=== PATIENT | male | born 1955 | race Caucasian/White ===

== ENCOUNTER 2018-07-06 08:39 | Observation (INO) | payer BC ==
[2018-07-06] MEDS ORDERED: IBUPROFEN 600 MG TABLET PO ONE (09:25)
[2018-07-06 09:31] LABS: HEMATOCRIT 40.9 % (42.0-52.0); HEMOGLOBIN 14.7 gm/dl (14.0-18.0); MEAN CELL VOLUME 88.9 fl (81-97); MEAN CORPUSCULAR HGB CONC 35.9 g/dl (32-36); MEAN PLATELET VOLUME 9.8 fl (7.4-10.4); PLATELET COUNT 279 K/uL (130-400); RED CELL DISTRIBUTION WIDTH 12.9 % (11.5-14.5)
[2018-07-06 09:40] LABS: BLOOD UREA NITROGEN 22 mg/dL (8-23); CREATININE 1.1 mg/dL (0.7-1.2); EST GLOMERULAR FILTRATION RATE > 60 mL/min
[2018-07-06 09:42] LABS: GLUCOSE,RANDOM 119 mg/dL (74-109)
--- NOTE | 2018-07-06 09:55 | Emergency Department Record ---
History of Present Illness - General Chief complaint: Pain Stated complaint: RIB PAIN/ATTACKED MY GOAT Time Seen by Provider: 07/06/18 09:15 Source: Patient, RN notes reviewed Mode of Arrival: Ambulatory - History of Present Illness Initial comments: patient rammed by a sheep yesterday with right rib pain and swollen right ankle. No other injuries Onset/Timin -: Days(s) Location: Right Severity scale (1-10): 5 Quality: Aching, Sharp Improves with: Rest Worsens with: Exertion, Palpation - Related Data Home Medications Medication Instructions Recorded Confirmed Last Taken Amlodipine Besylate [Norvasc] 10 mg PO DAILY 07/06/18 07/06/18 1 Day Ago ~07/05/18 Allergies Allergy/AdvReac Type Severity Reaction Status Date / Time No Known Drug Allergies Allergy Verified 07/06/18 08:48 Travel Screening - Travel/Exposure Within Last 30 Days Have you traveled within the last 30 days?: No - Travel/Exposure Within Last Year Have you traveled outside the [place] in the last year?: No - Additonal Travel Details Have you been exposed to anyone with a communicable illness?: No - Travel Symptoms Symptom Screening: None Review of Systems Reviewed: No additional complaints except as noted below Constitutional: Reports: As per HPI. Denies: Chills, Fever, Malaise, Night sweats, Weakness, Weight change Eyes: Reports: As per HPI. Denies: Eye discharge, Eye pain, Photophobia, Vision change ENT: Reports: As per HPI. Denies: Congestion, Dental pain, Ear pain, Epistaxis , Hearing loss, Throat pain Respiratory: Reports: As per HPI. Denies: Cough, Dyspnea, Hemoptysis, Stridor, Wheezes Cardiovascular: Reports: As per HPI, Other (right chest wall pain). Denies: Arrhythmia, Chest pain, Dyspnea on exertion, Edema, Murmurs, Orthopnea, Palpitations, Paroxysmal nocturnal dyspnea, Rheumatic Fever, Syncope Endocrine: Reports: As per HPI. Denies: Fatigue, Heat or cold intolerance, Polydipsia, Polyuria Gastrointestinal: Reports: As per HPI. Denies: Abdominal pain, Constipation, Diarrhea, Hematemesis, Hematochezia, Melena, Nausea, Vomiting Genitourinary: Reports: As per HPI. Denies: Dysuria, Frequency, Hematuria, Incontinence, Retention, Testicular pain, Testicular mass, Urgency Musculoskeletal: Reports: As per HPI. Denies: Arthralgia, Back pain, Gout, Joint swelling, Myalgia, Neck pain Skin: Reports: As per HPI. Denies: Bruising, Change in color, Change in hair/ nails, Lesions, Pruritus, Rash Neurological: Reports: As per HPI. Denies: Abnormal gait, Confusion, Headache, Numbness, Paresthesias, Seizure, Tingling, Tremors, Vertigo, Weakness Psychiatric: Reports: As per HPI. Denies: Anxiety, Auditory hallucinations, Depression, Homicidal thoughts, Suicidal thoughts, Visual hallucinations Hematological/Lymphatic: Reports: As per HPI. Denies: Anemia, Blood Clots, Easy bleeding, Easy bruising, Swollen glands Past Medical History - SOCIAL HISTORY Smoking Status: Current every day smoker Alcohol Use: None Alcohol Use Comment: for 1 year Drug Use: None - RESPIRATORY Hx Respiratory Disorders: No - CARDIOVASCULAR Hx Cardio Disorders: Yes Hx Hypertension: Yes - NEURO Hx Neuro Disorders: No - GI Hx GI Disorders: No - Hx Genitourinary Disorders: No - ENDOCRINE Hx Endocrine Disorders: No Hx Diabetes: No Hx Thyroid Disease: No - MUSCULOSKELETAL Hx Musculoskeletal Disorders: Yes Hx Arthritis: Yes - PSYCH Hx Psych Problems: No - HEMATOLOGY/ONCOLOGY Hx Hematology/Oncology Disorders: Yes 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 negative: External canal tenderness Nasal Exam: Normal inspection. negative: Discharge, Sinus tenderness Mouth exam: Normal external inspection, Tongue normal Teeth exam: Normal inspection. negative: Dental caries Throat exam: Normal inspection. negative: Tonsillar erythema, Tonsillar exudate - Neck Neck exam: Normal inspection, Full ROM. negative: Tenderness - Respiratory Respiratory exam: Normal lung sounds bilaterally, Other (right chest wall pain) . negative: Respiratory distress - Cardiovascular Cardiovascular Exam: Regular rate, Normal rhythm, Normal heart sounds - GI/Abdominal GI/Abdominal exam: Soft, Normal bowel sounds. negative: Tenderness - Rectal Rectal exam: Deferred - exam: Deferred - Extremities Extremities exam: Joint swelling, Normal capillary refill, Tenderness (right ankle pain) - Back Back exam: Reports: Normal inspection, Full ROM. Denies: Muscle spasm, Rash noted, Tenderness - Neurological Neurological exam: Alert, Normal gait, Oriented X3, Reflexes normal - Psychiatric Psychiatric exam: Normal affect, Normal mood - Skin Skin exam: Dry, Intact, Normal color, Warm Course Vital Signs 07/06/18 08:49 Temperature 98.4 F Pulse Rate 81 Respiratory 20 Rate Blood Pressure 148/97 Pulse Ox 98 Discussed case with Yuridia Mendez - Reevaluation(s) Reevaluation #1: discussed case with Dr Fox 07/06/18 12:32 Medical Decision Making - Lab Data Result diagrams: 07/06/18 09:00 07/06/18 09:00 Lab Results 07/06/18 07/06/18 07/06/18 Range/Units 09:00 09:00 09:00 WBC 14.0 H (4.2-12.2) K/uL RBC 4.60 (4.40-5.70) M/uL Hgb 14.7 (14.0-18.0) gm/dl Hct 40.9 L (42.0-52.0) % MCV 88.9 (81-97) fl MCH 32.0 (27-33) pg MCHC 35.9 (32-36) g/dl RDW 12.9 (11.5-14.5) % Plt Count 279 (130-400) K/uL MPV 9.8 (7.4-10.4) fl Neutrophils % 88.0 H (47-80) % Eosinophils % Not Reportable Basophils % Not Reportable Lymphocytes 6.0 L (16-45) % Monocytes 6.0 (0-9) % APTT 30.0 (24.5-39.1) SECONDS Sodium 140 (136-145) mmol/L Potassium 4.0 (3.4-4.5) mmol/L Chloride 101 (98-107) mmol/L Carbon Dioxide 22.0 (22-29) mmol/L Anion Gap 17.0 H (7-16) BUN 22 (8-23) mg/dL Creatinine 1.1 (0.7-1.2) mg/dL Estimated GFR > 60 mL/min Random Glucose 119 H (74-109) mg/dL Calcium 10.0 (8.8-10.2) mg/dL Ethyl Alcohol 0.010 (0-0.010) g/dL Disposition Clinical Impression: Multiple rib fractures Qualifiers: Encounter type: initial encounter Fracture type: closed Laterality: right Qualified Code(s): S22.41XA - Multiple fractures of ribs, right side, initial encounter for closed fracture Pneumothorax Qualifiers: Pneumothorax type: traumatic Encounter type: initial encounter Qualified Code(s ): S27.0XXA - Traumatic pneumothorax, initial encounter Fibula fracture Qualifiers: Encounter type: initial encounter Fibula location: distal Fracture type: closed Fracture morphology: unspecified fracture morphology Laterality: right Qualified Code(s): S82.831A - Other fracture of upper and lower end of right fibula, initial encounter for closed fracture Decision to Admit: Admit from ER Forms: Patient Portal Access Time of Disposition: 12:57 Quality - Quality Measures Quality Measures: N/A - Blood Pressure Screening Does Patient Have Any of the Following: No, Active Dx of HTN Blood Pressure Classification: Hypertensive Reading Systolic Measurement: 148 Diastolic Measurement: 97 Screening for High Blood Pressure: Patient Exclusion, Hx of HTN [G9744]
[2018-07-06] MEDS ORDERED: HYDROMORPHONE HCL 2 MG/ML VIAL IVP ONE (12:07)
[2018-07-06 12:20] LABS: URINE APPEARANCE CLEAR; URINE BILIRUBIN NEGATIVE (NEGATIVE); URINE BLOOD NEGATIVE (NEGATIVE); URINE COLOR YELLOW; URINE GLUCOSE (UA) NEGATIVE (NEGATIVE); URINE KETONE NEGATIVE (NEGATIVE); URINE LEUKOCYTE ESTERASE NEGATIVE (NEGATIVE); URINE NITRITE NEGATIVE (NEGATIVE); URINE PROTEIN NEGATIVE (NEGATIVE); URINE UROBILINOGEN 0.2 E.U./dL (0.20 - 1.00)
[2018-07-06] MEDS ORDERED: IPRATROPIUM/ALBUTEROL (0.5MG/3MG) NEB INH PRN (14:58)
[2018-07-06] MEDS: HYDROMORPHONE HCL 2 MG/ML VIAL IVP PRN ×2 (15:36→22:39)
[2018-07-06] MEDS ORDERED: NICOTINE 21 MG/24 HOUR PATCH TD SCH (15:45)
[2018-07-06] MEDS ORDERED: ACETAMINOPHEN 500 MG TABLET PO PRN (17:04)
[2018-07-06] MEDS ORDERED: NAPROXEN 250 MG TABLET PO PRN (17:07)
[2018-07-06] MEDS: HYDROCODONE/APAP 5/325MG TABLET PO PRN ×2 (18:11→22:41)
[2018-07-07] MEDS: HYDROCODONE/APAP 5/325MG TABLET PO PRN (03:25)
[2018-07-07] MEDS: HYDROMORPHONE HCL 2 MG/ML VIAL IVP PRN (03:51)
--- NOTE | 2018-07-07 07:36 | RADIOLOGY REPORT ---
EXAM: RIGHT ANKLE, THREE VIEWS HISTORY: PAIN AND SWELLING POST FALL. TECHNIQUE: Three views of the right ankle were obtained. Comparison: None. FINDINGS: There is borderline osteopenia. There is an oblique fracture of the distal fibula with disruption of the medial cortex at the level of the corner of the ankle mortise. No significant displacement. No other fracture nor dislocation. The ankle mortise joint appears symmetric. The distal tibiofibular joint does not appear widened. There is moderate lateral soft tissue swelling. IMPRESSION: NONDISPLACED OBLIQUE/SPIRAL FRACTURE OF THE DISTAL FIBULA WITH ASSOCIATED SOFT TISSUE SWELLING. THE ANKLE MORTISE JOINT IS SYMMETRIC. JOB NUMBER: [id number] [facility]
--- NOTE | 2018-07-07 07:48 | RADIOLOGY REPORT ---
EXAM: RIGHT RIBS WITH PA CHEST HISTORY: RIGHT RIB PAIN ONE DAY POST TRAUMA. TECHNIQUE: AP and oblique views of the right ribs are obtained as well as an upright PA view of the chest. Comparison: None. Encounter: Initial. FINDINGS: There is normal bone mineralization. On AP views there is questionable minimally displaced fracture of the anterolateral right sixth and seventh ribs. These are not well visualized on oblique views. On oblique views there is question of nondisplaced fracture of the anterolateral right eighth and ninth ribs. No other definite fracture. No lytic or blastic bone lesion. There are degenerative changes scattered throughout the visualized spine and right shoulder girdle. The heart is not enlarged and the pulmonary vasculature is nondilated. The thoracic aorta is tortuous and atherosclerotic. There is a possible small calcified granuloma in the lateral right lung apex. Minor linear scarring versus atelectasis in the lateral left lung base. There is suggestion of mild pleural stripe thickening in the lateral lower right hemithorax base which may relate to above described fractures. No costophrenic angle blunting. There is a questionable tiny apical pneumothorax. Surgical clips are noted in the left lung base. IMPRESSION: 1. MINIMALLY DISPLACED FRACTURES OF THE ANTEROLATERAL RIGHT SIXTH AND SEVENTH RIBS. NONDISPLACED FRACTURES OF THE MID TO DISTAL RIGHT EIGHTH AND NINTH RIBS ALSO QUESTIONED. THERE IS ASSOCIATED MILD LATERAL PLEURAL STRIPED THICKENING. 2. TINY RIGHT APICAL PNEUMOTHORAX QUESTIONED. 3. MINOR LINEAR SCARRING VERSUS ATELECTASIS IN THE LEFT LUNG BASE. CALCIFIED GRANULOMA QUESTIONED IN THE RIGHT LUNG APEX. JOB NUMBER: [id number] [facility]
--- NOTE | 2018-07-07 08:11 | CT SCAN REPORT ---
EXAM: CT OF THE CHEST WITHOUT CONTRAST HISTORY: RIGHT RIB PAIN POST FALL LAST NIGHT. RIB FRACTURES AND TINY PNEUMOTHORAX SUGGESTED ON SAME DAY RADIOGRAPHIC EXAMINATION. TECHNIQUE: Routine noncontrast CT examination of the chest was obtained. Comparison: Same day right rib series with PA chest. FINDINGS: The heart is nonenlarged. There is moderate atherosclerotic calcification of the coronary arteries. The thoracic aorta is diffusely atherosclerotic and tortuous. The ascending thoracic aorta is mildly ectatic measuring 3.8 cm in diameter. No mediastinal nor hilar mass/lymphadenopathy is seen. No mediastinal hematoma. There is a calcified right hilar lymph node consistent with healed granulomatous disease. The central airways are clear. Mild paraseptal emphysema is noted within the upper lungs. There is associated biapical lung scarring. Mild dependent atelectasis in each lung base. There are a couple tiny 1-2 mm noncalcified nodules in the anterolateral right upper lobe and a similar tiny subpleural nodule in the left upper lobe. A small area of ground glass opacity is noted in the left upper lobe laterally as seen on series 302 image 41. There is a small pleural based nodule in the inferior aspect of the right upper lobe contiguous with the minor fissure measuring 3.5 mm. This is likely the result of scarring though a neoplastic nodule is not entirely excluded. There is a tiny pneumothorax best seen in the apex with the air filled pleural space measuring 10 mm in maximum thickness. There are again noted minimally displaced fractures of the anterolateral right sixth and seventh ribs and nondisplaced fractures of the anterolateral right eighth and ninth ribs. There is a possible nondisplaced fractures of the anterolateral right fifth rib. There is mild associated pleural stripe thickening in these regions. The adrenal glands are not enlarged. No lytic or blastic bone lesion. IMPRESSION: 1. MULTIPLE RIGHT RIB FRACTURES REDEMONSTRATED ASSOCIATED WITH A VERY SMALL PNEUMOTHORAX. 2. PATCHY OPACITIES IN THE LUNG BASES CONSISTENT WITH ATELECTASIS OR LESS LIKELY INFILTRATE. TRACE DEPENDENT RIGHT PLEURAL FLUID WOULD BE DIFFICULT TO EXCLUDE. 3. SEVERAL NONCALCIFIED LUNG NODULES IDENTIFIED MEASURING 4 MM OR LESS. IF THERE IS A HISTORY OF SMOKING OR HISTORY OF MALIGNANCY, FOLLOW-UP CT CHEST EXAMINATION IN TWELVE MONTHS IS RECOMMENDED. OTHERWISE, NO FURTHER EVALUATION IS NECESSARY. 4. BILATERAL CORONARY ARTERY CALCIFICATIONS. MILD ECTASIA OF THE ASCENDING THORACIC AORTA. JOB NUMBER: [id number] [facility]
--- NOTE | 2018-07-07 09:44 | History & Physical ---
History of Present Illness - Date of Service Date of Service for History & Physical: 07/07/18 - History of Present Illness Admitting Diagnosis: rib fractures right multiple. ankle fracture. right pneumothorax History of Present Illness: Joseph Hernández is a 63 y.o. M who presented to the [facility] ED on 07/06/18 after being rammed into by a 350lb sheep which resulted in right rib pain and a swollen right ankle. Upon further evaluation in the ED, pt was found to have multiple broken ribs, a small right pneumothorax and a broken right ankle. 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 Elizabeth Hanks every 6 months, HTN and current tobacco use. Was a heavy drinker but quit over 1 year ago. PCP: Dr. Mar ED Course: VS: BP 148/97, HR 81, RR 20, SPO2 98% on RA, T 98.[address]: Small Pneumothorax, atelectasis vs. infiltrates, non-calcified lung nodules CXR: 4 right sided rib fractures (minimally displaced 6th and 7th rib, non- displaced 8th and 9th) Right ankle x-ray: non displaced oblique/spiral fx of distal fibula Nerve Block for Rib Fractures given by Anesthesia 07/07/18: Today, pt is resting in bed, with daughter at bedside. A&Ox4. Reports that he is still quite painful. Was taking Naproxen, [place] 5/325mg and Dilaudid IV throughout the night. Denies having any ROJELIO. Has been doing Incentive Spirometer routinely. Reports that his would like him to see Dr. Us ( orthopedist) and has made an appointment already for him for next Wednesday however he would like to continue with Ortho consult prior to discharge. Is concerned about how he will get around with a broken ankle. Waiting for consult with Dr. Fox (orthopedist) for recommendations prior to discharge. Travel Screening - Travel/Exposure Within Last 30 Days Have you traveled within the last 30 days?: No - Travel/Exposure Within Last Year Have you traveled outside the [place] in the last year?: No - Additonal Travel Details Have you been exposed to anyone with a communicable illness?: No - Travel Symptoms Symptom Screening: None Review of Systems Constitutional: Reports: As per HPI. Denies: Chills, Fever, Malaise, Night sweats, Weakness, Weight change Eyes: Reports: As per HPI ENT: Reports: As per HPI, Other (reports poor condition of teeth d/t radiation) Respiratory: Reports: As per HPI. Denies: Cough, Dyspnea, Hemoptysis, Stridor, Wheezes Cardiovascular: Reports: As per HPI, Other (right chest wall pain). Denies: Arrhythmia, Chest pain, Dyspnea on exertion, Edema, Murmurs, Orthopnea, Palpitations, Paroxysmal nocturnal dyspnea, Rheumatic Fever, Syncope Endocrine: Reports: As per HPI Gastrointestinal: Reports: As per HPI, Constipation. Denies: Nausea Genitourinary: Reports: As per HPI. Denies: Dysuria, Frequency, Hematuria, Incontinence, Retention, Testicular pain, Testicular mass, Urgency Musculoskeletal: Reports: As per HPI, Other (right ankle pain). Denies: Arthralgia, Back pain, Gout, Joint swelling, Myalgia, Neck pain Skin: Reports: As per HPI. Denies: Bruising, Change in color, Change in hair/ nails, Lesions, Pruritus, Rash Neurological: Reports: As per HPI. Denies: Abnormal gait, Confusion, Headache, Numbness, Paresthesias, Seizure, Tingling, Tremors, Vertigo, Weakness Psychiatric: Reports: As per HPI. Denies: Anxiety, Auditory hallucinations, Depression, Homicidal thoughts, Suicidal thoughts, Visual hallucinations Hematological/Lymphatic: Reports: As per HPI. Denies: Anemia, Blood Clots, Easy bleeding, Easy bruising, Swollen glands Past Medical History - SOCIAL HISTORY Smoking Status: Current every day smoker Alcohol Use: None Drug Use: None - RESPIRATORY Hx Respiratory Disorders: No - CARDIOVASCULAR Hx Cardio Disorders: Yes Hx Hypertension: Yes - NEURO Hx Neuro Disorders: No - GI Hx GI Disorders: No - Hx Genitourinary Disorders: No - ENDOCRINE Hx Endocrine Disorders: No Hx Diabetes: No Hx Thyroid Disease: No - MUSCULOSKELETAL Hx Musculoskeletal Disorders: Yes Hx Arthritis: Yes - PSYCH Hx Psych Problems: No - HEMATOLOGY/ONCOLOGY Hx Hematology/Oncology Disorders: Yes 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) Hx Chemotherapy: Yes (2013) Hx Radiation Therapy: Yes (2013) Family Medical History Any Significant Family History?: Yes Hx Diabetes: Mother Hx Kidney Disease: Father H&P Meds/Allergies - Allergies Allergies: Allergies Allergy/AdvReac Type Severity Reaction Status Date / Time No Known Drug Allergies Allergy Verified 07/06/18 08:48 - Home Medications Home Medications Medication Instructions Recorded Confirmed Last Taken Amlodipine Besylate [Norvasc] 10 mg PO DAILY 07/06/18 07/06/18 1 Day Ago ~07/05/18 Previous Rx's Medication Instructions Recorded Hydrocodone/APAP 7.5/325Mg [[place] 1 each PO TID PRN #15 tab 07/07/18 7.5MG/325Mg] Naproxen [Naprosyn] 500 mg PO Q12H PRN tablet 07/07/18 Sennosides/Docusate Sodium [Senna 1 each PO DAILY capsule 07/07/18 Plus] - Active Medications Active Medications: Current Medications Acetaminophen (Tylenol 500mg Tab) 500 mg PO Q6H PRN PRN Reason: PAIN - MILD (1-4) Hydrocodone Bitart/Acetaminophen ([place] 5mg/325mg) 1 each PO Q4H PRN PRN Reason: PAIN - MILD TO MODERATE (1-7) Last Admin: 07/07/18 03:25 Dose: 1 each Albuterol/Ipratropium (Duoneb) 3 ml INH RESP.Q4H PRN PRN Reason: WHEEZING Last Admin: 07/07/18 03:33 Dose: 3 ml Amlodipine Besylate (Norvasc) 10 mg PO DAILY PETE Enoxaparin Sodium (Lovenox) 40 mg SC DAILY PETE Hydromorphone HCl (Dilaudid) 0.5 mg IVP Q4H PRN PRN Reason: PAIN - SEVERE (8-10) Last Admin: 07/07/18 03:51 Dose: 0.5 mg Naproxen (Naprosyn) 500 mg PO Q12H PRN PRN Reason: PAIN - MILD (1-4) Last Admin: 07/06/18 22:41 Dose: 500 mg Nicotine (Nicotine 21mg) 1 patch TD Q24H PETE Last Admin: 07/06/18 15:44 Dose: 1 patch Physical Exam - Vital Signs Vital Signs: Vital Signs - Last 24 Hrs Temp Pulse Pulse Resp BP BP Pulse Ox 07/07/18 09:31 97.6 F 76 12 134/69 96 07/07/18 03:44 78 18 136/75 93 L 07/07/18 03:33 82 16 98 07/07/18 00:00 83 18 122/67 93 L 02/06/19 20:00 98.3 F 84 18 130/76 94 L 07/06/18 15:40 65 20 98 07/06/18 15:02 97.8 F 64 16 102/58 99 07/06/18 13:23 78 12 125/77 98 07/06/18 11:56 75 14 141/88 96 - General General Appearance: Alert, Oriented x3, Cooperative, No acute distress Limitations: No limitations - Head Head exam: Normal inspection - Eye Eye exam: Normal appearance, PERRL Pupils: Normal accommodation - ENT ENT exam: Normal exam, Mucous membranes moist, Normal external ear exam Ear exam: Normal external inspection. negative: External canal tenderness Nasal Exam: Normal inspection. negative: Discharge, Sinus tenderness Mouth exam: Normal external inspection, Tongue normal Teeth exam: Dental caries Throat exam: negative: Tonsillar erythema, Tonsillar exudate - Neck Neck exam: Normal inspection (scarring and discoloration d/t radiation), Full ROM. negative: Tenderness - Respiratory Respiratory exam: Chest wall tenderness, Wheezes. negative: Accessory muscle use, Respiratory distress - Cardiovascular Cardiovascular Exam: Regular rate, Normal rhythm, Normal heart sounds - GI/Abdominal GI/Abdominal exam: Soft, Normal bowel sounds. negative: Tenderness - Rectal Rectal exam: Deferred - exam: Deferred - Extremities Extremities exam: Joint swelling (right ankle), Normal capillary refill, Tenderness (right ankle) - Back Back exam: Reports: Normal inspection, Full ROM. Denies: Muscle spasm, Rash noted, Tenderness - Neurological Neurological exam: Alert, CN II-XII intact, Oriented X3 - Psychiatric Psychiatric exam: Normal affect, Normal mood - Skin Skin exam: Dry, Intact, Normal color, Warm Results - Labs Result Diagrams: 07/07/18 10:00 07/07/18 10:00 Labs Last 24 Hours: Laboratory Results - last 24 hr 07/06/18 07/06/18 07/06/18 09:00 09:00 09:00 Neutrophils % 88.0 H Lymphocytes 6.0 L Monocytes 6.0 Random Glucose 119 H AST 22 ALT Urine Color Urine Appearance Urine pH Ur Specific [place] Urine Protein Urine Glucose (UA) Urine Ketones Urine Blood Urine Nitrite Urine Bilirubin Urine Urobilinogen Ur Leukocyte Esterase 07/06/18 07/06/18 09:00 12:15 Neutrophils % Lymphocytes Monocytes Random Glucose AST ALT 15 Urine Color Yellow Urine Appearance Clear Urine pH 5.5 Ur Specific [place] 1.015 Urine Protein Negative Urine Glucose (UA) Negative Urine Ketones Negative Urine Blood Negative Urine Nitrite Negative Urine Bilirubin Negative Urine Urobilinogen 0.2 Ur Leukocyte Esterase Negative - Imaging and Cardiology Chest x-ray Status: Report reviewed CT scan - chest Status: Report reviewed VTE H&P Assessment - Risk for VTE Risk for VTE: Yes Risk Level: Moderate Risk Assessment Date: 07/07/18 Risk Assessment Time: 10:00 VTE Orders Placed or Will Be Placed: Yes Plan - Detailed Diagnosis and Plan (1) Pneumothorax Status: Acute Qualifiers: Pneumothorax type: traumatic Encounter type: initial encounter Qualified Code(s): S27.0XXA - Traumatic pneumothorax, initial encounter Base Code: J93.9 - PNEUMOTHORAX, UNSPECIFIED Comment: 07/07/18: -Chest CT: Small, right sided pneumothorax -98% on RA -Using Incentive Spirometer (2) Full code status Status: Acute Base Code: Z78.9 - OTHER SPECIFIED HEALTH STATUS Comment: : -Full code this admission (3) DVT prophylaxis Status: Acute Base Code: RME0301 - Comment: 07/07/18: -Moderate Risk -Lovenox 40mg SC daily (4) Fibula fracture Status: Acute Qualifiers: Encounter type: initial encounter Fibula location: distal Fracture type: closed Fracture morphology: unspecified fracture morphology Laterality: right Qualified Code(s): S82.831A - Other fracture of upper and lower end of right fibula, initial encounter for closed fracture Base Code: S82.409A - UNSP FRACTURE OF SHAFT OF UNSP FIBULA, INIT FOR CLOS FX Comment: 07/07/18: -Xray RLE indicate oblique/spiral right distal fibula fracture -Awaiting orthopedic consult for recommendations -Case management to determine equipment needs -Ortho boot in place -Increase [place] to 7.5/325mg PO q. 4 hours PRN -Continue Dilaudid 0.5mg IV q. 4 hours PRN -Continue Naproxyn 500mg q. 12 hours PRN (5) Multiple rib fractures Status: Acute Qualifiers: Encounter type: initial encounter Fracture type: closed Laterality: right Qualified Code(s): S22.41XA - Multiple fractures of ribs, right side, initial encounter for closed fracture Base Code: S22.49XA - MULTIPLE FRACTURES OF RIBS, UNSP SIDE, INIT FOR CLOS FX Comment: 07/07/18: - CXR shows 4 right rib fractures - Spinal nerve block administered by anesthesia to assist with pain control - Increase [place] to 7.5/325mg PO q. 4 hours PRN - Continue Tylenol 500mg q. 6 hours PRN and Naproxen 500mg q. 12 hours - Encourage Incentive Spirometry and splinting (6) Lung nodules Status: Acute Base Code: R91.8 - OTHER NONSPECIFIC ABNORMAL FINDING OF LUNG FIELD Comment: 07/07/18: -Chest CT reveal noncalcified lung nodules -Discussed CT results with pt and recommended f/u with PCP for CT scan in 1 year to monitor
[2018-07-07] MEDS ORDERED: ENOXAPARIN 40 MG/0.4 ML SYR SC SCH (10:00)
[2018-07-07] MEDS ORDERED: AMLODIPINE BESYLATE 5MG TAB PO SCH (10:00)
[2018-07-07] MEDS ORDERED: SENNOSIDES/DOCUSATE SODIUM UD CAPSULE PO SCH (10:15)
[2018-07-07] MEDS: HYDROCODONE/APAP 7.5/325MG TABLET PO PRN ×2 (10:30→16:50)
[2018-07-07 10:32] LABS: BLOOD UREA NITROGEN 24 mg/dL (8-23); CREATININE 1.1 mg/dL (0.7-1.2); EST GLOMERULAR FILTRATION RATE > 60 mL/min
[2018-07-07 10:35] LABS: GLUCOSE,RANDOM 161 mg/dL (74-109)
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
== END 2018-07-07 17:05 | disposition home or self-care (01) ==
LOC: ER 08:39 → MEDSURG 13:23
PROVIDERS: ADMIT Internal Medicine; ATTEND Internal Medicine
DX: S22.41XA Multiple fractures of ribs, right side, initial encounter for closed fracture (principal); S27.0XXA Traumatic pneumothorax, initial encounter; S82.831A Other fracture of upper and lower end of right fibula, initial encounter for closed fracture; W55.32XA Struck by other hoof stock, initial encounter; I10 Essential (primary) hypertension; M19.90 Unspecified osteoarthritis, unspecified site; R91.8 Other nonspecific abnormal finding of lung field; F17.210 Nicotine dependence, cigarettes, uncomplicated; Z85.858 Personal history of malignant neoplasm of other endocrine glands; Z85.810 Personal history of malignant neoplasm of tongue
CPT/HCPCS: 71250; 76942; 80048; 80320; 81003; 84145; 84450; 84460; 85027; 85730; 94010; 94640; 96374; 99220; 99285; J1650